=== PATIENT | male | born 1960 | race Caucasian/White ===

== ENCOUNTER 2022-12-26 13:34 | Emergency (ER) | payer OTHER, BC ==
[2022-12-26 13:50] VITALS: BP 143/92; PULSE 68; RESP 16; TEMP 97.9
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
[2022-12-26 14:12] LABS: Basophils % (A) 1 %; Eosinophils # (A) 0.3 k/uL (0-0.7); Eosinophils % (A) 4 %; HCT 39.4 % (39.0-53.0); HGB 13.6 gm/dL (13.0-17.5); Lymphocytes # (A) 1.9 k/uL (1.0-4.8); Lymphocytes % (A) 26 %; MCHC 34.6 g/dL (31.0-37.0); MCV 92.6 fL (80.0-100.0); Mean Platelet Volume 7.7; Monocytes # (A) 0.3 k/uL (0-1.0); Monocytes % (A) 3 %; Neutrophils # (A) 4.8 k/uL (1.3-7.7); Neutrophils % (A) 65 %; Platelet Count 195 k/uL (150-450); RBC 4.26 m/uL (4.30-5.90); RDW 12.2 % (11.5-15.5); WBC 7.4 k/uL (3.8-10.6)
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
[2022-12-26 14:21] LABS: INR 0.9 (<1.2); Prothrombin Time 10.1 sec (9.0-12.0)
[2022-12-26 14:25] LABS: ALT 37 U/L (4-49); AST 31 U/L (17-59); African American GFR (CKD) >90 (>60 ml/min/1.73 sqM); Albumin 4.5 g/dL (3.5-5.0); Alcohol <10 mg/dL; Alkaline Phosphatase 82 U/L (38-126); Anion Gap 8 mmol/L; Blood Urea Nitrogen 18 mg/dL (9-20); Calcium 8.9 mg/dL (8.4-10.2); Carbon Dioxide 27 mmol/L (22-30); Chloride 104 mmol/L (98-107); Glucose 116 mg/dL (74-99); Non-African American GFR(CKD) >90 (>60 ml/min/1.73 sqM); Sodium 139 mmol/L (137-145); Total Bilirubin 1.1 mg/dL (0.2-1.3); Total Protein 7.1 g/dL (6.3-8.2)
[2022-12-26 14:38] LABS: Partial Thromboplastin Time 21.1 sec (22.0-30.0)
[2022-12-26] MEDS ORDERED: KETOROLAC 15 MG/ML 1 ML VIAL IVP STA (15:09)
== END 2022-12-26 15:30 | disposition home or self-care (01) ==
LOC: EC 13:34
DX: S42.301A Unspecified fracture of shaft of humerus, right arm, initial encounter for closed fracture (principal); S82.401A Unspecified fracture of shaft of right fibula, initial encounter for closed fracture; Z87.891 Personal history of nicotine dependence; V29.608A Unspecified rider of other motorcycle injured in collision with unspecified motor vehicles in traffic accident, initial encounter; Y92.410 Unspecified street and highway as the place of occurrence of the external cause
CPT/HCPCS: 36415; 80053; 84484; 85025; 85610; 85730; 80320; 72170; 73030; 73610; 71045; 99285; 96374; 29105; 29515; L3670; J1885; 93005

== ENCOUNTER → 2022-12-27 | Outpatient (CLI) | payer OTHER ==
--- NOTE | 2022-12-27 23:41 | CT ---
EXAMINATION TYPE: CT shoulder RT wo con DATE OF EXAM: 12/27/2022 COMPARISON: None HISTORY: FX CT DLP: 712.[address] of the right shoulder with reconstruction imaging. TECHNIQUE: Unenhanced CT of the right shoulder was performed with bone and soft tissue window setting s submitted in the axial coronal and sagittal planes. At a separate workstation [id number] TR imaging was o btained. FINDINGS: There is fracture of the surgical neck of the right humerus with mild comminution seen. There is mild cranial migration of the distal fracture component with rotation of the humeral head. Glenohumeral j oint spaces are well preserved as is the AC joint. No additional fracture seen. Small hemarthrosis no dede. IMPRESSION: 1. Mildly comminuted fracture involving the surgical neck of the right humerus.
== END | disposition home or self-care (01) ==
LOC: RADCTMAIN 17:10
PROVIDERS: ATTEND Orthopaedic Surgery
DX: S42.221A 2-part displaced fracture of surgical neck of right humerus, initial encounter for closed fracture (principal); M25.571 Pain in right ankle and joints of right foot; X58.XXXA Exposure to other specified factors, initial encounter